=== PATIENT | female | born 1995 | race Caucasian/White ===

== ENCOUNTER 2016-08-24 20:58 | Inpatient (IN) | payer BC, OTHER ==
[2016-08-24] MEDS ORDERED: SODIUM CHLORIDE 0.9% 500 ML INFUS.BAG IV ONE (21:09)
[2016-08-24] MEDS ORDERED: DOXYCYCLINE INJECTION 100 MG in DEXTROSE 5%-WATER - 150 ML IVPB ONE (21:51)
[2016-08-24] MEDS ORDERED: CEFTRIAXONE 1,000 MG in DEXTROSE 5%-WATER - 50 ML IVPB ONE (21:51)
[2016-08-24 22:05] LABS: BASOPHIL 0.2 % (0-2.0); EOSINOPHIL 3.2 % (0-4.5); MCH 28.3 pg (25.7-33.7); MCHC 33.2 g/dl (32.0-36.0); MEAN CELL VOLUME 85.2 fl (80-96); MEAN PLT VOLUME 9.9 fl (7.5-11.1); NEUTROPHILS 85.8 % (42.8-82.8); PLATELET COUNT 195 K/MM3 (134-434)
[2016-08-24 22:18] LABS: INR 1.18 (0.82-1.09)
[2016-08-24 22:21] LABS: ACTIVATED PTT 28.7 SECONDS (26.9-34.4)
--- NOTE | 2016-08-24 22:24 | PN ---
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 developed vomiting on Friday- multiple times, then felt well, occurred again on Friday, then felt fine and again on Friday- multiple episodes- she then developed today intense myalgias with fevers and chills reports cyanosis of her fingertips this afternoon hands and feet are itchy +sore throat no diarrhea, no dysuria +menses Friday to Friday +tampon use sexually active, control pills, no condoms no travel no pets in ED awake and alert with tachycardia, no fevers pelvic exam by ED Doctor- normal, nontender, no discharge labs pending differential diagnosis includes tick borne illness, viral illness, strep throat no signs of shock or erythroderma to suggest TSS plan cultures, labs, tick serology to include lyme, ehrlichia, anaplasma IVF, rocephin, doxycycline vanco, clindamycin
[2016-08-24 22:29] LABS: ALK PHOS 52 U/L (45-117); ANION GAP 11 (8-16); BILIRUBIN,TOTAL 0.5 mg/dL (0.2-1.0); CALCIUM 8.8 mg/dL (8.5-10.1); CO2 25 mmol/L (21-32); COCKROFT - GAULT 96.3815; GLUCOSE,RANDOM 102 mg/dL (74-106); SGOT/AST 19 U/L (15-37); SGPT/ALT 20 U/L (12-78); TOT PROT 7.8 g/dl (6.4-8.2)
[2016-08-24] MEDS ORDERED: VANCOMYCIN 1 GRAM (PRE-DOCKED) 1,000 MG/250 ML BAG IVPB ONE (22:30)
[2016-08-24] MEDS ORDERED: CEFTRIAXONE 2 GM in DEXTROSE 5%-WATER - 100 ML IVPB ONE (22:35)
[2016-08-24] MEDS ORDERED: cefTRIAXone 2 GM/100 ML BAG (PRE-DOCKED) IVPB ONE (22:45)
--- NOTE | 2016-08-24 22:50 | PDOC ---
History of Present Illness - General History Source: Patient Exam Limitations: No Limitations - History of Present Illness Initial Comments: 08/24/16 22:51 The patient is a 21-year-old female, accompanied by father, with no significant past medical history, and presents to the emergency department with vomiting, body aches, fever, and finger inflammation for 5 days. She reports that she vomited 5 days ago, and the vomiting stopped for 2 days during which she felt normal, until she began vomiting again for the next 2 days. She states that she vomited multiple times during the days she vomited. She states she had a sore throat last week. She reports tactile fever, chills, body aches, and generalized weakness that started yesterday. She also reports a redness and itching of her fingers that started yesterday. As per father, two of the patient s fingers were blue earlier. She last took Naproxen at 2pm today with no significant relief. She denies any changes in her diet. She denies any recent travel or sick contacts. She states she has just returned from [place] in [facility]. The patient denies chest pain, shortness of breath, headache and dizziness. The patient denies nausea, diarrhea and constipation. The patient denies dysuria, frequency, urgency and hematuria. LMP: one week ago, uses tampons Allergies: NKDA Past Surgical History: None reported Social History: No toxic habits reported PCP: Dr. Micah Martin <Sabrina Armenta - Last Filed: 08/24/16 23:38> <Adia Denson - Last Filed: 08/26/16 01:01> - General Chief Complaint: SIRS, Suspected/Possible Stated Complaint: FEVER/RASH/VOMITING Time Seen by Provider: 08/24/16 21:04 Past History <Sabrina Armenta - Last Filed: 08/24/16 23:38> - Psycho/Social/Smoking Cessation Hx Suicidal Ideation: No Smoking History: Never smoked <Adia Denson - Last Filed: 08/26/16 01:01> - Past Medical History Allergies/Adverse Reactions: Allergies Allergy/AdvReac Type Severity Reaction Status Date / Time No Known Allergies Allergy Verified 08/24/16 21:00 Review of Systems - Review of Systems Able to Perform ROS?: Yes Comments:: 08/24/16 22:51 CONSTITUTIONAL: Present: (+) fever, (+) chills, (+) generalized weakness Absent: diaphoresis, malaise, loss of appetite HEENT: Absent: rhinorrhea, nasal congestion, throat pain, throat swelling, difficulty swallowing, mouth swelling, ear pain, eye pain, visual changes CARDIOVASCULAR: Absent: chest pain, syncope, palpitations, irregular heart rate, lightheadedness , peripheral edema RESPIRATORY: Absent: cough, shortness of breath, dyspnea with exertion, orthopnea, wheezing, stridor, hemoptysis GASTROINTESTINAL: Present: (+) vomiting Absent: abdominal pain, abdominal distension, nausea, diarrhea, constipation, melena, hematochezia GENITOURINARY: Absent: dysuria, frequency, urgency, hesitancy, hematuria, flank pain, genital pain MUSCULOSKELETAL: Present: (+) myalgia Absent: arthralgia, joint swelling SKIN: Present: (+) finger rash, (+) itching Absent: pallor HEMATOLOGIC/IMMUNOLOGIC: Absent: easy bleeding, easy bruising, lymphadenopathy, frequent infections ENDOCRINE: Absent: unexplained weight gain, unexplained weight loss, heat intolerance, cold intolerance NEUROLOGIC: Absent: headache, focal weakness or paresthesias, dizziness, unsteady gait, seizure, mental status changes, bladder or bowel incontinence PSYCHIATRIC: Absent: anxiety, depression, suicidal or homicidal ideation, hallucinations. <Sabrina Armenta - Last Filed: 08/24/16 23:38> *Physical Exam - Vital Signs Last Vital Signs Temp Pulse Resp BP Pulse Ox 98.9 F 113 H 18 138/90 100 08/24/16 21:01 08/24/16 21:01 08/24/16 21:01 08/24/16 21:01 08/24/16 21:01 - Physical Exam Comments: 08/24/16 23:38 GENERAL: (+) Febrile. Well developed, well nourished. Awake and alert. No acute distress. HEENT: Normocephalic, atraumatic. PERRLA, EOMI. No conjunctival pallor. Sclera are non- icteric. Moist mucous membranes. Oropharynx is clear. NECK: Supple. Full ROM. No JVD. Carotid pulses 2+ and symmetric, without bruits. No thyromegaly. No lymphadenopathy. CARDIOVASCULAR: (+) Tachycardic. Regular rhythm. No murmurs, rubs, or gallops. Distal pulses are 2+ and symmetric. PULMONARY: No evidence of respiratory distress. Lungs clear to auscultation bilaterally. No wheezing, rales or rhonchi. ABDOMINAL: Soft. Non-tender. Non-distended. No rebound or guarding. No organomegaly. Normoactive bowel sounds. PELVIC: (+) Pelvic exam normal externally and internally. (+) Vaginal vault normal, no CMT. MUSCULOSKELETAL Normal range of motion at all joints. No bony deformities or tenderness. No CVA tenderness. EXTREMITIES: No cyanosis. No clubbing. No edema. No calf tenderness. SKIN: (+) Lips slightly dusky. (+) Fingernails dark. (+) Fingers are erythematous with rash, no macules or papules. (+) Itchy palms without macules or papules. (+ ) No rash anywhere else on body. Warm and dry. Normal capillary refill. No jaundice. NEUROLOGICAL: Alert, awake, appropriate. Cranial nerves 2-12 intact. No deficits to light touch and temperature in face, upper extremities and lower extremities. No motor deficits in the in face, upper extremities and lower extremities. Normoreflexic in the upper and lower extremities. Normal speech. Toes are down- going bilaterally. Gait is normal without ataxia. PSYCHIATRIC: Cooperative. Good eye contact. Appropriate mood and affect. <Sabrina Armenta - Last Filed: 08/24/16 23:38> - Vital Signs Last Vital Signs Temp Pulse Resp BP Pulse Ox 98.9 F 113 H 18 138/90 100 08/24/16 21:01 08/24/16 21:01 08/24/16 21:01 08/24/16 21:01 08/24/16 21:01 <Adia Denson - Last Filed: 08/26/16 01:01> ED Treatment Course - LABORATORY CBC & Chemistry Diagram: 08/24/16 21:55 08/24/16 21:55 - ADDITIONAL ORDERS Additional order review: Laboratory Results 08/24/16 08/24/16 08/24/16 22:10 21:55 21:55 INR PTT (Actin FS) Sodium 137 Potassium 4.0 Chloride 101 Carbon Dioxide 25 Anion Gap 11 BUN 12 Creatinine 1.0 Creat Clearance w eGFR > 60 Random Glucose 102 Lactic Acid 2.098 H* Calcium 8.8 Total Bilirubin 0.5 AST 19 ALT 20 Alkaline Phosphatase 52 Creatine Kinase 215 H CK-MB (CK-2) 1.185 Total Protein 7.8 Albumin 4.0 Beta HCG, Quant 08/24/16 08/24/16 08/24/16 21:55 21:55 21:50 INR 1.18 H PTT (Actin FS) 28.7 Cancelled Sodium Potassium Chloride Carbon Dioxide Anion Gap BUN Creatinine Creat Clearance w eGFR Random Glucose Lactic Acid Calcium Total Bilirubin AST ALT Alkaline Phosphatase Creatine Kinase CK-MB (CK-2) Total Protein Albumin Beta HCG, Quant < 1.0 08/24/16 21:55 Influenza Types A,B Antigen (KURT) - Final Nasopharyngeal Swab - Final 08/24/16 21:58 Group A Strep Rapid Antigen - Final Throat 08/24/16 21:55 RBC 4.72 MCV 85.2 MCHC 33.2 RDW 13.0 MPV 9.9 Neutrophils % 85.8 H Lymphocytes % 8.7 Monocytes % 2.1 L Eosinophils % 3.2 Basophils % 0.2 - Medications Given in the ED: ED Medications Discontinued Medications Generic Name Dose Route Start Last Admin Trade Name Freq PRN Reason Stop Dose Admin Sodium Chloride 1,000 ml 08/24/16 21:09 08/24/16 22:06 Normal Saline - IV 08/24/16 21:10 1,000 ml ONCE ONE Administration <Sabrina Armenta - Last Filed: 08/24/16 23:38> - LABORATORY CBC & Chemistry Diagram: 08/24/16 21:55 08/24/16 21:55 - ADDITIONAL ORDERS Additional order review: Laboratory Results 08/24/16 08/24/16 08/24/16 22:10 21:55 21:55 INR PTT (Actin FS) Sodium 137 Potassium 4.0 Chloride 101 Carbon Dioxide 25 Anion Gap 11 BUN 12 Creatinine 1.0 Creat Clearance w eGFR > 60 Random Glucose 102 Lactic Acid 2.098 H* Calcium 8.8 Total Bilirubin 0.5 AST 19 ALT 20 Alkaline Phosphatase 52 Creatine Kinase 215 H Total Protein 7.8 Albumin 4.0 Beta HCG, Quant 08/24/16 08/24/16 08/24/16 21:55 21:55 21:50 INR 1.18 H PTT (Actin FS) 28.7 Cancelled Sodium Potassium Chloride Carbon Dioxide Anion Gap BUN Creatinine Creat Clearance w eGFR Random Glucose Lactic Acid Calcium Total Bilirubin AST ALT Alkaline Phosphatase Creatine Kinase Total Protein Albumin Beta HCG, Quant < 1.0 08/24/16 21:55 Influenza Types A,B Antigen (KURT) - Final Nasopharyngeal Swab - Final 08/24/16 21:58 Group A Strep Rapid Antigen - Final Throat 08/24/16 21:55 RBC 4.72 MCV 85.2 MCHC 33.2 RDW 13.0 MPV 9.9 Neutrophils % 85.8 H Lymphocytes % 8.7 Monocytes % 2.1 L Eosinophils % 3.2 Basophils % 0.2 - RADIOLOGY Radiology Studies Ordered: Category Date Time Status CHEST PA & LAT [RAD] Stat Radiology 08/24/16 21:08 Ordered - Medications Given in the ED: ED Medications Discontinued Medications Generic Name Dose Route Start Last Admin Trade Name Freq PRN Reason Stop Dose Admin Sodium Chloride 1,000 ml 08/24/16 21:09 08/24/16 22:06 Normal Saline - IV 08/24/16 21:10 1,000 ml ONCE ONE Administration <Adia Denson - Last Filed: 08/26/16 01:01> Medical Decision Making - Medical Decision Making 08/24/16 22:48 Rapid strep is normal. Flu culture is normal serum HCG negative, WBC elevated at 18. CPK is 215 - no rhabdo. Pt was seen by ID, Dr. Alejandro; we are treating with doxycycline, rocephin and clindamycin. 08/24/16 23:24 Opiate screen is + however her dad gave her vicodin at home for her myalgias. Other tox screen is normal Pelvic exam normal. No FB or pus in the vaginal vault. No adnexal tenderness or CMT 08/24/16 23:25 Dr. Martin is aware of the patient and he will admit her. 08/26/16 01:00 Pelvic cultures pending. Pt went to the floor before we could order a CXR. Consider getting CXR. <Adia Denson - Last Filed: 08/26/16 01:01> *DC/Admit/Observation/Transfer - Attestations Scribe Attestion: 08/24/16 22:51 Documentation prepared by Sabrina Armenta, acting as medical secretary for Adia Denson MD. <Sabrina Armenta - Last Filed: 08/24/16 23:38> - Discharge Dispostion Admit: Yes <Adia Denson - Last Filed: 08/26/16 01:01> Diagnosis at time of Disposition: Fever, Myalgia, Sepsis, Rash of hands
[2016-08-24] MEDS ORDERED: KETOROLAC TROMETHAMINE 30 MG/1 ML VIAL IVPUSH ONE (22:57)
[2016-08-24] MEDS ORDERED: ACETAMINOPHEN 325 MG TABLET (FP) PO ONE (22:57)
[2016-08-24 23:00] LABS: URINE APPEARANCE CLEAR; URINE BILIRUBIN NEGATIVE (NEGATIVE); URINE BLOOD NEGATIVE (NEGATIVE); URINE COLOR STRAW; URINE GLUCOSE (UA) NEGATIVE (NEGATIVE); URINE KETONE NEGATIVE (NEGATIVE); URINE LEUK ESTERASE NEGATIVE (NEGATIVE); URINE NITRITE NEGATIVE (NEGATIVE); URINE PROTEIN NEGATIVE (NEGATIVE); URINE UROBILINOGEN NEGATIVE E.U./dl (0.2-1.0)
[2016-08-24 23:11] LABS: URINE MARIJUANA THC NEGATIVE ng/ml (CUTOFF=50)
[2016-08-24] MEDS ORDERED: KETOROLAC TROMETHAMINE 30 MG/1 ML VIAL ONE (23:42)
[2016-08-24] MEDS ORDERED: ACETAMINOPHEN 325 MG TABLET (FP) ONE (23:43)
[2016-08-24] MEDS ORDERED: CLINDAMYCIN 600MG PREMIX IVPB 50 ML IVPB ONE (23:44)
[2016-08-24] MEDS: CLINDAMYCIN 600MG PREMIX IVPB 50 ML IVPB SCH (23:53)
[2016-08-25 03:51] VITALS: BMI 22.5
[2016-08-25] MEDS ORDERED: ACETAMINOPHEN 325 MG TABLET (FP) PO PRN (09:44)
[2016-08-25] MEDS ORDERED: SODIUM CHLORIDE 1,000 ML IV SCH (10:00)
[2016-08-25] MEDS: CLINDAMYCIN 600MG PREMIX IVPB 50 ML IVPB SCH ×2 (10:16→18:17)
--- NOTE | 2016-08-25 10:42 | EKG ---
Test Reason : Blood Pressure : / mmHG Vent. Rate : 091 BPM Atrial Rate : 091 BPM P-R Int : 144 ms QRS Dur : 088 ms QT Int : 372 ms P-R-T Axes : 043 024 029 degrees QTc Int : 457 ms NORMAL SINUS RHYTHM RSR' OR QR PATTERN IN V1 SUGGESTS RIGHT VENTRICULAR CONDUCTION DELAY NORMAL ECG NO PREVIOUS ECGS AVAILABLE Confirmed by MD CIRO, SUSSY ([id number]) on 08/25/2016 10:42:29 AM Referred By: Confirmed By:SUSSY TANNER MD
--- NOTE | 2016-08-25 10:47 | HP ---
Admitting History and Physical - Primary Care Physician PCP: Micah Martin - Admission Chief Complaint: fever History of Present Illness: he patient is a 21-year-old female-- with no significant past medical history, came to the emergency department with vomiting, body aches, fever, and finger inflammation for 5 days. She reports that she vomited 5 days ago, and the vomiting stopped for 2 days during which she felt normal, until she began vomiting again for the next 2 days. She states that she vomited multiple times during the days she vomited. She states she had a sore throat last week. She reports tactile fever, chills, body aches, and generalized weakness that started yesterday. She also reports a redness and itching of her fingers that started yesterday. As per father, two of the patients fingers were blue earlier. She last took Naproxen at 2pm today with no significant relief. She denies any changes in her diet. She denies any recent travel or sick contacts. She states she has just returned from [place] in [facility]. Due to intense myalgia --pt also got one dose of vicodin at home due to intense myalgia. The patient denies chest pain, shortness of breath, headache and dizziness. The patient denies nausea, diarrhea and constipation. The patient denies dysuria, frequency, urgency and hematuria. LMP: one week ago, uses tampons. Allergies: NKDA Past Surgical History: None reported Social History: No toxic habits reported. Pt seen by ID Dr. Alejandro- given broad spectrum abx. wbc were elevated as well as lactic acid given fluids also Serologies send . pt seen today chart reviewed . case was also discussed with er physician last night no complains today feels better afebrile denies cp/ sob / abd pain. denies n/v bp on low side History Source: Patient, Family Member Limitations to Obtaining History: No Limitations - Past Medical History ...LMP: 07/25/16 ...: No - Smoking History Smoking history: Never smoked - Alcohol/Substance Use Hx Alcohol Use: No Home Medications - Allergies Allergies/Adverse Reactions: Allergies Allergy/AdvReac Type Severity Reaction Status Date / Time No Known Allergies Allergy Verified 08/24/16 21:00 Family Disease History - Family Disease History Family History: Unremarkable Review of Systems Unable to obtain ROS, reason: see [email or web address] Physical Examination Vital Signs: Vital Signs Temperature 98.2 F 08/25/16 06:00 Pulse Rate 75 08/25/16 06:58 Respiratory Rate 18 08/25/16 06:58 Blood Pressure 94/54 08/25/16 06:58 O2 Sat by Pulse Oximetry (%) 100 08/25/16 03:29 Constitutional: Yes: No Distress, Calm Eyes: Yes: WNL, Conjunctiva Clear HENT: Yes: WNL Neck: Yes: Supple, Trachea Midline Cardiovascular: Yes: Regular Rate and Rhythm Respiratory: Yes: CTA Bilaterally Gastrointestinal: Yes: Normal Bowel Sounds, Soft Edema: No Neurological: Yes: Alert ...Motor Strength: WNL Psychiatric: Yes: WNL Problem List - Problems (1) Fever Code(s): R50.9 - FEVER, UNSPECIFIED (2) Myalgia Code(s): M79.1 - MYALGIA (3) Rash of hands Code(s): R21 - RASH AND OTHER NONSPECIFIC SKIN ERUPTION (4) Sepsis Code(s): A41.9 - SEPSIS, UNSPECIFIED ORGANISM Assessment/Plan Clinically better continue abx continue fluids f/u serologies/ cultures will follow
[2016-08-25] MEDS: cefTRIAXone 2 GM/100 ML BAG (PRE-DOCKED) IVPB SCH (10:54)
--- NOTE | 2016-08-25 12:33 | PN ---
Progress Note (short form) - Note Progress Note: feels well no complaints less myalgias, didnot ask for any pain meds! Vital Signs Period Temp Pulse Resp BP Sys/Sacnhez Pulse Ox Last 24 Hr 97.9 F-98.9 F 75-113 18-18 94-138/54-90 100-100 no rash cor-rrr lungs clear abd soft,nt ext no edema CBC, BMP 08/24/16 21:55 08/24/16 21:55 lfts normal a/p fever/myalgia/leukocytosis doubt tickborne illness no leukopenia/thrombocytoopenia or abnl lfts continue rocephin/clindamycin f/u cultures cbc in am d/w Dr Martin
--- NOTE | 2016-08-25 13:38 | CONS ---
DATE OF CONSULTATION: 08/24/2016 REQUESTED BY: Micah Martin MD HISTORY OF PRESENT ILLNESS: The patient was seen in the emergency room. She is a 21-year-old woman. She is a college student at [employer]. She just returned this Friday from school. On Friday, she had multiple episodes of profuse vomiting. That was the same day that she started her menses. The vomiting resolved. She was well through the weekend. Again on Friday she had multiple episodes of vomiting. Again this resolved and she felt well. She came home on Friday from school. She was well for . On Friday she had once again vomiting, this time it was profuse. She vomited multiple times. She had fevers and chills. She noted her hands and feet were itchy and this persisted. She developed diffuse intense myalgias over entire body. This persisted all day Friday. She stayed on the couch. She tried Motrin, she tried Vicoprofen. Nothing helped her myalgia. She noted in the middle of the day that her hands turned cyanotic as well, subsequently resolved. She was brought to the emergency room later in the evening by her father with these complaints. She has no abdominal pain. She has no chest pain. She has no cough. She complains of a mild sore throat. She was able to eat today. Her vomiting has stopped and she was able to eat. She had several small meals. She has no dysuria. She is sexually active. She does not use condoms. She had a pelvic exam in the emergency room, which the emergency room doctor reports as normal. Her past medical history is unremarkable. She has no known drug allergies. Her home medications are oral contraceptives. Family history is notable for 2 siblings with muscular dystrophy. SOCIAL HISTORY: She is a college student. Otherwise, she lives at home with her family. There is no history of smoking or substance use. REVIEW OF SYSTEMS: As per HPI. PHYSICAL EXAMINATION: Vital Signs: In the ER, her temperature is 98.9 with a pulse of 113, blood pressure 138/90, respiratory rate is 18, she weighs 150 pounds, saturating 100%. HEENT: She is normocephalic. Her eyes, she has some mild conjunctivitis. Her pharynx is mildly injected. There is no exudate. She has no cervical adenopathy. Neck: Supple. She has no meningeal signs. Lungs: Clear to auscultation. Heart: Regular rate and rhythm. Abdomen: Soft, nontender. Extremities: Without edema. She has dry skin but no obvious rash. Her father reports she earlier had lesions on both her hands, and currently she has none. Her labs are pending. Cultures have been sent. She describes a redness and itching over her fingers as well as her toes. She has denies any change in her diet. There has been no travel. She has been at school. She is up-to-date on her vaccines. Physical exam is as stated. In summary, this is an otherwise healthy young woman, home from college, with a syndrome including intermittent vomiting, intense myalgia, and fevers and chills. Concerns would include tick-borne illness, as she is from [facility]; viral illness; strep throat. No signs of shock or erythroderma to suggest toxic shock but cannot rule out perhaps a very mild case, given the intermittent symptoms and the recent tampon use, which was last on Friday. I would plan cultures, urine is done, a pelvic exam as well as vaginal cultures, labs, tick serology to include Lyme, Ehrlichia, and anaplasma, IV fluids, Rocephin and doxycycline to cover possibility of an STD as well as tick-borne illness as well as sepsis. Will give a dose of vancomycin as well as clindamycin for possible mild toxic shock related to her tampon use. Case was discussed at length with the ER doctor as well as her father, who was present at the bedside, and with the patient. SUHA COLES M.D. [id number]
[2016-08-26] MEDS: CLINDAMYCIN 600MG PREMIX IVPB 50 ML IVPB SCH ×2 (01:49→10:36)
[2016-08-26 07:50] VITALS: BP 97/50; PULSE 79; TEMP 97.8
--- NOTE | 2016-08-26 08:42 | DS ---
Physical Examination Vital Signs: Vital Signs Temperature 97.8 F 08/26/16 07:50 Pulse Rate 79 08/26/16 07:50 Respiratory Rate 20 08/26/16 07:50 Blood Pressure 97/50 08/26/16 07:50 O2 Sat by Pulse Oximetry (%) 100 08/25/16 21:00 <Micah Martin - Last Filed: 08/26/16 08:42> Vital Signs: Vital Signs Temperature 97.8 F 08/26/16 07:50 Pulse Rate 79 08/26/16 07:50 Respiratory Rate 20 08/26/16 07:50 Blood Pressure 97/50 08/26/16 07:50 O2 Sat by Pulse Oximetry (%) 100 08/25/16 21:00 Findings/Remarks: Doing well. No complaints. Slept well. Denies any pain. Constitutional: Yes: Well Nourished Eyes: Yes: Conjunctiva Clear Neck: Yes: Supple, Trachea Midline Cardiovascular: Yes: Regular Rate and Rhythm Respiratory: Yes: CTA Bilaterally Gastrointestinal: Yes: Soft Edema: No <Yasemin Manning - Last Filed: 08/26/16 10:28> Discharge Summary Reason For Visit: FEVER/MUSCLE PAIN/RASH OF HANDS/SEPSIS Current Active Problems Fever (Acute) Myalgia (Acute) Rash of hands (Acute) Sepsis (Acute) - Home Medications Comprehensive Discharge Medication List: Ambulatory Orders Acetaminophen [Tylenol .Regular Strength -] 650 mg PO Q4H PRN #0 tablet <Micah Martin - Last Filed: 08/26/16 08:42> Current Active Problems Fever (Acute) Myalgia (Acute) Rash of hands (Acute) Sepsis (Acute) Hospital Course: The patient is a 21-year-old female, accompanied by father, with no significant past medical history, and presents to the emergency department with vomiting, body aches, fever, and finger inflammation for 5 days. She reports that she vomited 5 days ago, and the vomiting stopped for 2 days during which she felt normal, until she began vomiting again for the next 2 days. She states that she vomited multiple times during the days she vomited. She states she had a sore throat last week. She reports tactile fever, chills, body aches, and generalized weakness that started yesterday. She also reports a redness and itching of her fingers that started yesterday. As per father, two of the patient s fingers were blue earlier. She last took Naproxen at 2pm today with no significant relief. She denies any changes in her diet. She denies any recent travel or sick contacts. She states she has just returned from [place] in [facility]. The patient denies chest pain, shortness of breath, headache and dizziness. The patient denies nausea, diarrhea and constipation. The patient denies dysuria, frequency, urgency and hematuria. LMP: one week ago, uses tampons Allergies: NKDA Past Surgical History: None reported Social History: No toxic habits reported PCP: Dr. Micah Martin Patient admitted secondary to not feeling well having intense myalgias and fevers/chills. Treated empirically with abx. Serology sent for Tick borne diseases Cultures also sent Patient also given fluids given white count was high and elevated lactic acid. Now feels fine. No further blood work as patient refused-- will try to get CBC today if pt agrees Overall looking and feeling well. Will d/c home off abx. Cultures negative so far. Discussed with Dr. Alejandro also. Documentation prepared by Yasemin Manning, acting as a durable medical equipment repairer for Micah Martin MD. - Home Medications Comprehensive Discharge Medication List: Ambulatory Orders Acetaminophen [Tylenol .Regular Strength -] 650 mg PO Q4H PRN #0 tablet <Yasemin Manning - Last Filed: 08/26/16 10:28>
[2016-08-26] MEDS: cefTRIAXone 2 GM/100 ML BAG (PRE-DOCKED) IVPB SCH (11:42)
== END 2016-08-26 13:00 | disposition home or self-care (01) | DRG 720 ==
LOC: JER 20:58 → JERBED 22:56 → J8W 08-25 00:11
PROVIDERS: ADMIT Internal Medicine; ATTEND Internal Medicine
DX: A41.9 Sepsis, unspecified organism (principal); M79.1 Myalgia; R21 Rash and other nonspecific skin eruption; D72.829 Elevated white blood cell count, unspecified
CPT/HCPCS: 36415; 80053; 80307; 81003; 82550; 82553; 82930; 83605; 84702; 85025; 85610; 85730; 86618; 86666; 87040; 87070; 87075; 87086; 87186; 87205; 87254; 87430; 87491; 87591; 87804; 93005; 93010; 99285-25